=== PATIENT | female | born 1990 | race Caucasian/White ===

== ENCOUNTER 2016-03-02 13:47 | Emergency (ER) | payer MEDICAID ==
[~2016-03-02] VITALS: Ht 152.4 cm; Wt 56.0 kg
[2016-03-02 14:14] VITALS: Ht 152.4 cm; Wt 56.0 kg
[2016-03-02] MEDS ORDERED: HC1C30 TOP (15:19)
[2016-03-02 15:36] LABS: URINE BLOOD (Dip) POC Trace-intact (NEGATIVE)
--- NOTE | 2016-03-02 17:03 | ERD ---
DATE OF SERVICE: 03/02/2016 HISTORY OF PRESENT ILLNESS: The patient is a 25-year-old female coming in complaining of a rash on her left side of her face. Patient states it has been there for the last 15 days. She states it is painful. She has not used any medications on it. She states that she just came from [facility]. S he has never had a rash like this before. Denies any fevers. PAST MEDICAL HISTORY: Denies any medical problems. ALLERGIES TO MEDICATIONS: Denies. SURGICAL HISTORY: Denies. SOCIAL HISTORY: Denies. REVIEW OF SYSTEMS: A 12-point review of systems was done. Refer to HPI for positives, all other sy stems negative. PHYSICAL EXAMINATION VITAL SIGNS: Temperature 99, pulse 52, blood pressure 141/63, respiratory rate 18, O2 saturation 10 0% on room air. Pain intensity is 0/10. GENERAL: The patient is well-appearing, well-nourished, in no acute distress. HEENT: Atraumatic. Conjunctivae are pink. Pupils equal, round, and reactive to light. There is no s cleral icterus. Tympanic membranes clear bilaterally. Oropharynx clear. No nystagmus or photophobia . NECK: C-spine is soft and supple. There is no meningismus. There is no cervical lymphadenopathy. No JVD. No bruits. No goiter. CHEST: Clear to auscultation bilaterally. There are no rales, wheezes or rhonchi. HEART: Regular rate and rhythm. No murmurs, clicks, rubs or gallops. No S3 or S4. ABDOMEN: Soft, nontender and nondistended. Good bowel sounds. No rebound or guarding. No gross vinny tonitis. No gross organomegaly or masses. No Mcdonnell sign or McBurney point tenderness. SKIN: The patient has dry cracking rash noted on the left cheek. There are no vesicles, no purulen ce, no parasitic changes. DIAGNOSIS: Eczema. MEDICAL DECISION MAKING: I have low suspicion for bacterial infection. Low suspicion for shingles. Low suspicion for necrotizing fasciitis or life-threatening rash. Patient's exam is concerning an d appears to be eczematic in nature. DISCHARGE: The patient is discharged stable. The patient is given a prescription for hydrocortison e and told to follow up with primary care within 1 to 2 days for reevaluation. The patient is told if symptoms progress or worsen, to return to the ER. All other questions answered at time of discha rge. Discharge summary given at the time of departure. The patient understood and complied with pl an. Dictated By: SUSAN OLIVEIRA/JARRED Conf#: [id number] DID#: [id number]
== END 2016-03-02 15:49 | disposition home or self-care (01) ==
LOC: FTE 13:47
DX: L30.9 Dermatitis, unspecified (principal)
CPT/HCPCS: 81003; Z7502; 99283

== ENCOUNTER 2017-10-14 21:06 | Emergency (ER) | END 2017-10-14 22:13 | disposition home or self-care (01) ==